=== PATIENT | male | born 1960 | race Caucasian/White ===

== ENCOUNTER 2022-07-07 09:20 | Day surgery (SDC) | payer OTHER, SELFPAY ==
--- NOTE | 2022-07-03 11:58 | HO.ANESPROP2 ---
Documented by User: Yudi Merino NP 07/03/22 12:07 HPI - Anesthesia Eval Consult details Narrative: 61yo M for Colonoscopy [facility] Past Medical History Medical History DM (diabetes mellitus) Elevated cholesterol Fatty liver GERD (gastroesophageal reflux disease) HTN (hypertension) Low back pain BRYON on CPAP Surgical History Surgical History H/O colonoscopy H/O thumb surgery Social History Social History Patient Tobacco Use Status: Former Tobacco user Quit Date: 12 yrs ago Use of substances other than those prescribed or required for medical reasons: No Are you DNR?: No Advance Directives: No Advance Directives Information Provided: Yes Meds Allergies Allergy/AdvReac Type Severity Reaction Status Date / Time bee pollen [bee stings] Allergy Unknown Verified 07/07/22 10:34 Home Medications Medication Instructions Recorded Confirmed Last Taken Type atorvastatin 80 mg PO DAILY 07/03/22 07/03/22 Unknown History glipizide 10 mg PO BID 07/03/22 07/03/22 Unknown History lisinopril 20 1 tab PO DAILY 07/03/22 07/03/22 07/07/22 07:00 History mg-hydrochlorothiazide 12.5 mg tablet metformin 1,000 mg PO BID 07/03/22 07/03/22 Unknown History omeprazole magnesium 20 mg PO DAILY 07/03/22 07/03/22 Unknown History sildenafil 100 mg tablet 1 tab PO DIRECTED 07/03/22 07/03/22 Unknown History Exam Exam Date and Time: July 03, 2022 115 Assessment and Plan Assessment Anesthesia Assessment: Chart Reviewed Documented by User: Duy Jonas MD 07/07/22 11:23 [facility] Past Medical History Medical History DM (diabetes mellitus) Elevated cholesterol Fatty liver GERD (gastroesophageal reflux disease) HTN (hypertension) Low back pain BRYON on CPAP Functional capacity: independent ambulation Family History Family history of problems with anesthesia: No Surgical History Surgical History H/O colonoscopy H/O thumb surgery History of Problems with Anesthesia: No Social History Social History Patient Tobacco Use Status: Former Tobacco user Quit Date: 12 yrs ago Use of substances other than those prescribed or required for medical reasons: No Are you DNR?: No Advance Directives: No Advance Directives Information Provided: Yes Meds Allergies Allergy/AdvReac Type Severity Reaction Status Date / Time bee pollen [bee stings] Allergy Unknown Verified 07/07/22 10:34 Home Medications Medication Instructions Recorded Confirmed Last Taken Type atorvastatin 80 mg PO DAILY 07/03/22 07/03/22 Unknown History glipizide 10 mg PO BID 07/03/22 07/03/22 Unknown History lisinopril 20 1 tab PO DAILY 07/03/22 07/03/22 07/07/22 07:00 History mg-hydrochlorothiazide 12.5 mg tablet metformin 1,000 mg PO BID 07/03/22 07/03/22 Unknown History omeprazole magnesium 20 mg PO DAILY 07/03/22 07/03/22 Unknown History sildenafil 100 mg tablet 1 tab PO DIRECTED 07/03/22 07/03/22 Unknown History Exam Airway Mallampati Class: III Neck ROM: Full Loose/Missing/Broken Teeth: Yes (Poor dentition ) Assessment and Plan Assessment Anesthesia Assessment: Anesthesia Plan Discussed Final Anesthetic Review Family History of Problems with Anesthesia: No History of Problems with Anesthesia: No NPO: Yes Final Preanesthetic Review: Meds/Allgs Chart Reviewed, Consent Obtained/Reviewed and Anes Risks/Benef Reviewed Patient Risk: Intermediate Procedure Risk: Intermediate Anesthetic Plan Disposition: Standard PACU
[2022-07-07 10:09] VITALS: BMI 34.6
[2022-07-07 10:19] VITALS: BP 135/78; PULSE 66; RESP 16; TEMP 36.8; O2SAT 94
[2022-07-07 10:24] LABS: Glucose, Whole Blood 159 mg/dL (60-115)
[2022-07-07] MEDS: Lactated Ringers 1,000 ML 100 ML IVCONT (10:34)
--- NOTE | 2022-07-07 11:26 | MHC.SHP ---
Pre-Procedural Eval Section A Date of Service: 07/07/22 The patient is an INPATIENT: No Changes since office visit: No Cold of Flu in the past 2 weeks, No New Medical Problems, No Changes in Medication and No Patient answered all questions The History & Physical has been completed within 30 days and I have reviewed it.: Yes Section B Chief Complaint: screening Allergies: Allergies Allergy/AdvReac Type Severity Reaction Status Date / Time bee pollen [bee stings] Allergy Unknown Verified 07/07/22 10:34 Plan I have reviewed the history and physical and performed a pertinent physical examination on my patient. No changes have occurred unless specified. Time Spent With Patient Time: Total time managing care of this patient today ____ minutes.
--- NOTE | 2022-07-07 12:04 | PM.OP ---
Brief Operative Note Date of Service: 07/07/22 Pre-op diagnosis: screening Post-op diagnosis: same Procedure: colonoscopy Surgeon: Mehul Gutierrez Anesthesia: MAC Was an [employer] used for this Procedure?: No Estimated blood loss (mL): 2 Pathology: other Condition: stable Disposition: PACU
[2022-07-07 12:09] VITALS: BP 108/59; PULSE 78; RESP 16; TEMP 36.6; O2SAT 95
[2022-07-07 12:24] VITALS: BP 124/71; PULSE 62; RESP 16; TEMP 36.6; O2SAT 98
--- NOTE | 2022-07-07 21:57 | OP_ITS ---
SURGEON: Mehul Gutierrez MD INDICATIONS: Colon cancer screening. PREOPERATIVE DIAGNOSIS: POSTOPERATIVE DIAGNOSIS: PROCEDURE PERFORMED: Colonoscopy to the terminal ileum with biopsy and snare polypectomy. ESTIMATED BLOOD LOSS: COMPLICATIONS: ANESTHESIA: Monitored anesthesia care. ASSISTANTS: SPECIMENS: DESCRIPTION OF PROCEDURE: Date: 07/07/22. History and physical performed. The risks and benefits of the procedure were explained to the patient. Informed consent was obtained. The patient was placed in the left lateral decubitus position. A digital rectal exam was performed and was found to be normal. The Olympus pediatric video colonoscope was introduced into the rectum and advanced to the cecum without difficulty. The cecum was identified by transillumination, palpation, and identification of ileocecal valve. Examination was performed. The scope was removed. He tolerated the procedure well and was returned to the recovery area in stable condition. FINDINGS: The terminal ileum was examined and appeared normal. The visualized colonic mucosa was normal. Three polyps were removed using a combination of snare and biopsy forceps. All measured less than 10 mm. These were located in the right colon, 90 cm and 60 cm. There was some moderate sigmoid diverticulosis. There was some stool coating mucosa which limiting the sensitivity examination for detection of small polyps. This was washed and suctioned. Retroflexed examination showed moderate-sized internal hemorrhoids. IMPRESSION: Colon polyps. RECOMMENDATION: Follow up with the biopsy results. MD RENEE Ruth/PATRICE / [id number] MTDD
== END 2022-07-07 13:05 | disposition home or self-care (01) ==
PROVIDERS: PCP Internal Medicine; Visit Provider Internal Medicine Gastroenterology
PROC: 0DJD8ZZ Inspection of Lower Intestinal Tract, Via Natural or Artificial Opening Endoscopic (ICD-10-PCS; CPT 45378; principal; 2022-07-07 10:50)
DX: Z12.11 Encounter for screening for malignant neoplasm of colon (principal); D12.4 Benign neoplasm of descending colon; K63.5 Polyp of colon; K57.30 Diverticulosis of large intestine without perforation or abscess without bleeding; K64.8 Other hemorrhoids; K76.0 Fatty (change of) liver, not elsewhere classified; K21.9 Gastro-esophageal reflux disease without esophagitis; I10 Essential (primary) hypertension; E78.00 Pure hypercholesterolemia, unspecified; E11.9 Type 2 diabetes mellitus without complications; G47.33 Obstructive sleep apnea (adult) (pediatric); Z99.89 Dependence on other enabling machines and devices; Z79.84 Long term (current) use of oral hypoglycemic drugs; Z79.899 Other long term (current) drug therapy; Z87.891 Personal history of nicotine dependence
CPT/HCPCS: 45385; 45380; 82947; 88305